=== PATIENT | male | born 1950 ===

== ENCOUNTER 2023-01-23 09:42 | Outpatient (REF) | payer BC, SELFPAY | END 2023-01-23 09:43 | disposition home or self-care (01) | LOC: HO.SH 09:42 | PROVIDERS: Visit Provider Internal Medicine | DX: Z01.118 Encounter for examination of ears and hearing with other abnormal findings (principal); H90.3 Sensorineural hearing loss, bilateral | CPT/HCPCS: 92557; 92700 ==